=== PATIENT | female | born 1995 | race Caucasian/White ===

== ENCOUNTER 2016-11-17 10:07 | Inpatient (IN) | payer OTHER ==
[2016-11-17 11:13] VITALS: BMI 24.2
--- NOTE | 2016-11-17 12:53 | HP ---
COWS - Scale Resting Pulse: 0= [place] 80 or Below Sweatin=Flushed/Facial Moisture Restless Observation: 3= Extraneous Movement Pupil Size: 2= Moderately Dilated Bone or Joint Aches: 2= Severe Diffuse Aches Runny Nose/ Eye Tearin= Runny Nose/Eyes GI Upset > 30mins: 3= Vomiting/Diarrhea Tremor Observation: 2= Slight Tremor Visible Yawning Observation: 2= >3x During Session Anxiety or Irritability: 2=Irritable/Anxious Goose Flesh Skin: 0=Smooth Skin COWS Score: 20 CIWA Score - CIWA Score Nausea/Vomitin Muscle Tremors: 3 Anxiety: 3 Agitation: 3 Paroxysmal Sweats: 2 Orientation: 0-Oriented Tacttile Disturbances: 2-Mild Itch/Numbness/Burn Auditory Disturbances: 2-Mild Harshness/Frighten Visual Disturbances: 2-Mild Sensitivity Headache: 2-Mild CIWA-Ar Total Score: 22 Admission ROS BHS - HPI Chief Complaint: i need help to stop using heroin,xanax,cannabis dependence Allergies/Adverse Reactions: Allergies Allergy/AdvReac Type Severity Reaction Status Date / Time No Known Allergies Allergy Verified 11/17/16 12:37 History of Present Illness: this 21 years old female with heroin,xanax,marijuana dependence,withdrawal symptom,last detox 02/20/16 to 02/25/16 anxiety and depression weight loss abscess left forearm nicotine dependence longest period of sobriety 10 months Exam Limitations: No Limitations - Ebola screening Have you traveled outside of the country in the last 21 days: No Have you had contact with anyone from an Ebola affected area: No Have you been sick,other than usual withdrawal symptoms: No - Review of Systems Constitutional: Chills, Diaphoresis, Loss of Appetite, Malaise, Night Sweats, Changes in sleep, Weakness, Unexplained wgt Loss EENT: reports: Tearing, Nose Congestion Respiratory: reports: No Symptoms reported Cardiac: reports: No Symptoms Reported GI: reports: Diarrhea, Nausea, Vomiting, Abdominal cramping : reports: No Symptoms Reported Musculoskeletal: reports: Back Pain, Joint Pain, Muscle Pain, Joint Stiffness Integumentary: reports: Dryness Endocrine: reports: No Symptoms Reported Hematology: reports: No Symptoms Reported Psychiatric: reports: Anxious, Depressed Patient History - Patient Medical History Hx Anemia: Yes (no med) Hx Asthma: No Hx Chronic Obstructive Pulmonary Disease (COPD): No Hx Cancer: No Hx Cardiac Disorders: No Hx Congestive Heart Failure: No Hx Hypertension: No Hx Hypercholesterolemia: No Hx Pacemaker: No HX Cerebrovascular Accident: No Hx Seizures: No Hx Dementia: No Hx Diabetes: No Hx Gastrointestinal Disorders: No Hx Liver Disease: No Hx Genitourinary Disorders: No Hx Sexually Transmitted Disorders: No Hx Renal Disease (ESRD): No Hx Thyroid Disease: No Hx Human Immunodeficiency Virus (HIV): No (last 02/21) Hx Hepatitis C: No Hx Depression: Yes (anxiety.insomnia) Hx Suicide Attempt: No Hx Bipolar Disorder: No Hx Schizophrenia: No Other Medical History: no suicidal,no homicidal - Patient Surgical History Past Surgical History: Yes Hx Neurologic Surgery: No Hx Cataract Extraction: No Hx Cardiac Surgery: No Hx Lung Surgery: No Hx Breast Surgery: No Hx Breast Biopsy: No Hx Abdominal Surgery: No Hx Appendectomy: Yes Hx Cholecystectomy: No Hx Genitourinary Surgery: No Hx Section: No Hx Orthopedic Surgery: No Hx Hysterectomy: No Other Surgical History: TONSILECTOMY Anesthesia Reaction: No - PPD History Previous Implant?: Yes Documented Results: Negative w/proof Implanted On [facility] Admission?: Yes Date: 02/22/16 Results: 0 mm PPD to be Administered?: No - Reproductive History Patient is a Female of Child Bearing Age (11 -55 yrs old): Yes Last Menstrual Period: 09/19/16 Patient : No - Smoking Cessation Smoking history: Current every day smoker Have you smoked in the past 12 months: Yes Aproximately how many cigarettes per day: 4 Hx Chewing Tobacco Use: No Initiated information on smoking cessation: Yes 'Breaking Loose' booklet given: 11/17/16 - Substance & Tx. History Hx Alcohol Use: No Hx Substance Use: Yes Substance Use Type: Heroin, Marijuana, Tranquilizers Hx Substance Use Treatment: Yes ([facility] last 02/20/16 to 02/25/16) - Substances Abused Heroin Route: Injection Frequency: Daily Amount used: 10-20 bags Age of first use: 15 Date of Last Use: 11/16/16 Xanax Route: Oral Frequency: Daily Amount used: 12-14 mg. Age of first use: 15 Date of Last Use: 11/13/16 Marijuana Route: Smoking Frequency: Daily Amount used: $20 Age of first use: 10 Date of Last Use: 11/16/16 Family Disease History - Family Disease History Family History: Denies Admission Physical Exam [facility] - Vital Signs Vital Signs: Vital Signs - 24 hr 11/17/16 11:08 Temperature 96.8 F L Pulse Rate 53 L Respiratory 18 Rate Blood Pressure 103/72 - Physical General Appearance: Yes: Moderate Distress, Tremorous, Irritable, Sweating, Anxious HEENTM: Yes: Hearing grossly Normal, Normal ENT Inspection, Pharynx Normal, Nasal Congestion Respiratory: Yes: Lungs Clear, Normal Breath Sounds, No Respiratory Distress Neck: Yes: Within Normal Limits Breast: Yes: Breast Exam Deferred Cardiology: Yes: Within Normal Limits, Regular Rhythm, Regular Rate, S1, S2 Abdominal: Yes: Within Normal Limits, Normal Bowel Sounds, Non Tender, Flat, Soft, Surgical Scar Genitourinary: Yes: Within Normal Limits Back: Yes: Muscle Spasm Musculoskeletal: Yes: full range of Motion, Back pain, Joint Stiffness, Muscle Pain Extremities: Yes: Normal Inspection, Normal Range of Motion, Tremors Neurological: Yes: decontaminator II-XII NML intact, Fully Oriented, Alert, Motor Strength 5/5 Integumentary: Yes: Dry Lymphatic: Yes: Within Normal Limits - Diagnostic (1) Opioid dependence with withdrawal Current Visit: Yes Status: Acute (2) Uncomplicated sedative, hypnotic or anxiolytic withdrawal Current Visit: Yes Status: Acute (3) Marijuana dependence Current Visit: No Status: Chronic (4) Abscess of left forearm Current Visit: Yes Status: Acute (5) Weight loss Current Visit: Yes Status: Acute (6) Anxiety with depression Current Visit: Yes Status: Acute (7) Insomnia Current Visit: Yes Status: Acute Cleared for Admission [facility] - Detox or Rehab [facility] Level of Care: Medically Managed Detox Regimen/Protocol: Methadone [facility] Breath Alcohol Content Breath Alcohol Content: 0 Urine Pregancy Test - Result Urine Test Results: Negative- NO Line Present Urine Drug Screen - Results Drug Screen Negative: No Urine Drug Screen Results: THC-Marijuana, OPI-Opiates, TCA-Tricyclic Antidepress , OXY-Oxycodone
[2016-11-17] MEDS ORDERED: NICOTINE POLACRILEX 2 MG GUM BC PRN (13:05)
[2016-11-17] MEDS ORDERED: guaiFENesin/D-METHORPHAN HB 10 ML UNIT-DOSE CUPS PO PRN (13:05)
[2016-11-17] MEDS ORDERED: hydrOXYzine PAMOATE 50 MG CAPSULE (FP) PO PRN (13:05)
[2016-11-17] MEDS ORDERED: MAGNESIUM HYDROX 2400MG/30ML ORAL SUSPENSION 30 ML CUP PO PRN (13:05)
[2016-11-17] MEDS ORDERED: MENTHOL/PHENOL 1 EACH UD MM PRN (13:05)
[2016-11-17] MEDS ORDERED: LOPERAMIDE HCL 2 MG CAPSULE PO PRN (13:05)
[2016-11-17] MEDS ORDERED: IBUPROFEN 400 MG TABLET (FP) PO PRN (13:05)
[2016-11-17] MEDS ORDERED: MAGNESIUM CITRATE 300 ML BOTTLE PO PRN (13:05)
[2016-11-17] MEDS ORDERED: MAG HYDROX/AL HYDROX/SIMETH 30 ML UNIT-DOSE CUP PO PRN (13:05)
[2016-11-17] MEDS ORDERED: P-EPHED 60MG/TRIPROLIDI 2.5MG TABLET PO PRN (13:05)
[2016-11-17] MEDS ORDERED: ACETAMINOPHEN 325 MG TABLET (FP) PO PRN (13:05)
[2016-11-17] MEDS: SULFAMETHOXAZOLE/TRIMETHOPRIM 800MG/160MG D.S. TABLET PO SCH ×2 (13:42→22:16)
[2016-11-17] MEDS: diazePAM 5 MG TABLET PO PRN ×2 (13:42→22:16)
[2016-11-17] MEDS ORDERED: METHADONE HCL 10 MG TABLET (FOR DETOX USE ONLY) PO ONE ×2 (13:45→23:00)
[2016-11-17] MEDS: TRIMETHOBENZAMIDE HCL 200MG/2ML INJ IM PRN (14:36)
[2016-11-17 17:36] LABS: URINE APPEARANCE CLOUDY; URINE BILIRUBIN NEGATIVE (NEGATIVE); URINE COLOR YELLOW; URINE GLUCOSE (UA) NEGATIVE (NEGATIVE); URINE KETONE 2+ (NEGATIVE); URINE LEUK ESTERASE NEGATIVE (NEGATIVE); URINE NITRITE NEGATIVE (NEGATIVE); URINE UROBILINOGEN NEGATIVE E.U./dl (0.2-1.0)
[2016-11-17 17:37] LABS: URINE BLOOD 1+ (NEGATIVE); URINE PROTEIN 1+ (NEGATIVE)
[2016-11-17 17:43] LABS: URINE BACTERIA RARE /hpf (NONE SEEN); URINE MUCUS MANY; URINE RBC 51 /hpf (0-3)
[2016-11-17] MEDS: diphenhydrAMINE HCL 50 MG CAPSULE PO PRN (22:16)
[2016-11-17] MEDS: cloNIDine HCL 0.1 MG TABLET PO SCH (22:16)
[2016-11-17] MEDS: THIAMINE HCL 100 MG TABLET (FP) PO SCH (22:16)
[2016-11-17] MEDS: CYCLOBENZAPRINE HCL 10 MG TABLET (FP) PO PRN (22:16)
[2016-11-17] MEDS: BACITRACIN 0.9 GM PACKET TP SCH (22:16)
--- NOTE | 2016-11-18 08:30 | CONSULT ---
[facility] Psychiatric Consult - Data Date of interview: 11/18/16 Admission source: [facility] Identifying data: This is 21 years old female with no psychiatric hospitalization history intoxciated with: Opioids, Cocaine, Xanax and Cannabis Substance Abuse History: - Smoking Cessation. Smoking history: Current every day smoker. Have you smoked in the past 12 months: Yes. Aproximately how many cigarettes per day: 4. Hx Chewing Tobacco Use: No. Initiated information on smoking cessation: Yes. 'Breaking Loose' booklet given: 11/17/16. - Substance & Tx. History. Hx Alcohol Use: No. Hx Substance Use: Yes. Substance Use Type : Heroin, Marijuana, Tranquilizers. Hx Substance Use Treatment: Yes ([facility] last 02/20/16 to 02/25/16). - Substances Abused. Heroin. Route: Injection. Frequency: Daily. Amount used: 10-20 bags. Age of first use: 15. Date of Last Use: 11/16/16. Xanax. Route: Oral. Frequency: Daily. Amount used: 12 -14 mg. Age of first use: 15. Date of Last Use: 11/13/16. Marijuana. Route: Smoking. Frequency: Daily. Amount used: $20. Age of first use: 10. Date of Last Use: 11/16/16 Medical History: Denies significant medical issues Psychiatric History: Patient reports history of depression and anxiety, reports taking prior to admission: no medications. Denies history of [sychiatric hospitalizations as well Physical/Sexual Abuse/Trauma History: Denies Additional Comment: Observation. Detox Unit Care Protocol Mental Status Exam - Mental Status Exam Alert and Oriented to: Person Cognitive Function: Fair Patient Appearance: Unkempt Mood: Sad Affect: Flat Patient Behavior: Sedated Speech Pattern: Delayed Voice Loudness: Mildly Soft/Quiet Thought Process: Circumstantial Thought Disorder: Being Controlled Hallucinations: Denies Suicidal Ideation: Denies Homicidal Ideation: Denies Insight/Judgement: Fair Sleep: Difficulty falling asleep Appetite: Weight gain Muscle strength/Tone: Mild Hypotonicity Gait/Station: Shuffling Additional Comments: Observation. Detox Unit Care Protocol Psychiatric Findings - Problem List ([place] 1, 2,3) (1) Opioid dependence with withdrawal Current Visit: Yes Status: Acute (2) Uncomplicated sedative, hypnotic or anxiolytic withdrawal Current Visit: Yes Status: Acute (3) Heroin use disorder, severe Current Visit: No Status: Acute (4) Substance induced mood disorder Current Visit: No Status: Acute (5) Cocaine dependence Current Visit: No Status: Chronic Qualifiers: Substance use status: uncomplicated Qualified Code(s): F14.20 - Cocaine dependence, uncomplicated (6) Marijuana dependence Current Visit: No Status: Chronic (7) Opiate dependence Current Visit: No Status: Chronic Qualifiers: Substance use status: uncomplicated Qualified Code(s): F11.20 - Opioid dependence, uncomplicated (8) Substance-induced anxiety disorder Current Visit: No Status: Suspected - Initial Treatment Plan Initial Treatment Plan: Observation. Detox Unit Care Protocol
[2016-11-18] MEDS ORDERED: METHADONE HCL 10 MG TABLET (FOR DETOX USE ONLY) PO ONE (10:00)
[2016-11-18 10:03] LABS: MCH 29.1 pg (25.7-33.7); MCHC 33.1 g/dl (32.0-36.0); MEAN CELL VOLUME 87.9 fl (80-96); MEAN PLT VOLUME 9.1 fl (7.5-11.1); PLATELET COUNT 480 K/MM3 (134-434); RDW 13.5 % (11.6-15.6)
[2016-11-18 10:39] LABS: ALBUMIN 4.6 g/dl (3.4-5.0); ALK PHOS 188 U/L (45-117); ANION GAP 15 (8-16); BILIRUBIN,TOTAL 0.7 mg/dL (0.2-1.0); CALCIUM 10.1 mg/dL (8.5-10.1); CO2 21 mmol/L (21-32); CREATININE 1.1 mg/dL (0.55-1.02); GLUCOSE,RANDOM 132 mg/dL (74-106); SGOT/AST 20 U/L (15-37); SGPT/ALT 41 U/L (12-78); TOT PROT 9.2 g/dl (6.4-8.2)
[2016-11-18] MEDS: BACITRACIN 0.9 GM PACKET TP SCH ×2 (11:02→22:27)
[2016-11-18] MEDS: cloNIDine HCL 0.1 MG TABLET PO SCH ×2 (11:02→22:29)
[2016-11-18] MEDS: SULFAMETHOXAZOLE/TRIMETHOPRIM 800MG/160MG D.S. TABLET PO SCH ×2 (11:02→22:27)
[2016-11-18] MEDS: CYCLOBENZAPRINE HCL 10 MG TABLET (FP) PO PRN ×2 (11:03→22:27)
[2016-11-18] MEDS: PRENATAL VITAMINS W/ FOLIC ACID TABLET (FP) PO SCH (11:03)
[2016-11-18] MEDS: diazePAM 5 MG TABLET PO PRN (11:03)
[2016-11-18] MEDS: TRIMETHOBENZAMIDE HCL 200MG/2ML INJ IM PRN (11:06)
--- NOTE | 2016-11-18 12:35 | EKG ---
Test Reason : Blood Pressure : / mmHG Vent. Rate : 039 BPM Atrial Rate : 039 BPM P-R Int : 114 ms QRS Dur : 088 ms QT Int : 560 ms P-R-T Axes : -03 028 053 degrees QTc Int : 450 ms MARKED SINUS BRADYCARDIA ABNORMAL ECG NO PREVIOUS ECGS AVAILABLE Confirmed by ALEJANDRA BAUTISTA MD ([id number]) on 11/18/2016 12:35:38 PM Referred By: Confirmed By:ALEJANDRA BAUTISTA MD
--- NOTE | 2016-11-18 13:49 | PN ---
[facility] CIWA - CIWA Score Nausea/Vomitin-Int. Nausea w/Dry Heave Muscle Tremors: 3 Anxiety: 3 Agitation: 2 Paroxysmal Sweats: 3 Orientation: 0-Oriented Tacttile Disturbances: 2-Mild Itch/Numbness/Burn Auditory Disturbances: 0-None Visual Disturbances: 0-None Headache: 0-None Present CIWA-Ar Total Score: 17 S COWS - Scale Resting Pulse: 0= [place] 80 or Below Sweatin= Chills/Flushing Restless Observation: 3= Extraneous Movement Pupil Size: 1= Pupils >than Normal Bone or Joint Aches: 2= Severe Diffuse Aches Runny Nose/ Eye Tearin= Nasal Congestion GI Upset > 30mins: 2= Nausea/Diarrhea Tremor Observation of Outstretched Hands: 1= Tremor [place], Not Seen Yawning Observation: 0= None Anxiety or Irritability: 2=Irritable/Anxious Goose Flesh Skin: 0=Smooth Skin COWS Score: 13 [facility] Progress Note (SOAP) Subjective: interrupted sleep, sweats,restless, nausea, bodyaches Objective: 11/18/16 13:47 Vital Signs Temperature 98.1 F 11/18/16 10:56 Pulse Rate 56 L 11/18/16 10:56 Respiratory Rate 16 11/18/16 10:56 Blood Pressure 109/61 11/18/16 10:56 O2 Sat by Pulse Oximetry (%) Last Vital Signs Temp Pulse Resp BP Pulse Ox 98.1 F 56 L 16 109/61 11/18/16 10:56 11/18/16 10:56 11/18/16 10:56 11/18/16 10:56 Laboratory Tests 11/17/16 11/18/16 11/18/16 13:00 06:20 06:20 WBC 20.0 H D RBC 5.12 Hgb 14.9 D Hct 45.0 MCV 87.9 MCHC 33.1 RDW 13.5 Plt Count 480 H D MPV 9.1 Sodium 141 Potassium 4.1 Chloride 105 Carbon Dioxide 21 D Anion Gap 15 BUN 16 D Creatinine 1.1 H D Creat Clearance w eGFR > 60 Random Glucose 132 H D Calcium 10.1 Total Bilirubin 0.7 D AST 20 D ALT 41 D Alkaline Phosphatase 188 H D Total Protein 9.2 H D Albumin 4.6 D Urine Color Yellow Urine Appearance Cloudy Urine pH 5.0 Ur Specific [place] 1.030 Urine Protein 1+ H Urine Glucose (UA) Negative Urine Ketones 2+ H Urine Blood 1+ H Urine Nitrite Negative Urine Bilirubin Negative Urine Urobilinogen Negative Ur Leukocyte Esterase Negative Urine RBC 51 Urine WBC None Ur Epithelial Cells Rare Amorphous Urates Moderate Urine Bacteria Rare Urine Mucus Many pt aox3 lying in bed in nad Assessment: 11/18/16 13:48 withdrawal sx;s leucocytosis Plan: cont. detox increase fluids tigan im cbc/esr flexeril
[2016-11-18] MEDS: diphenhydrAMINE HCL 50 MG CAPSULE PO PRN (22:27)
[2016-11-18] MEDS: THIAMINE HCL 100 MG TABLET (FP) PO SCH (22:27)
[2016-11-19 09:39] LABS: MCHC 34.2 g/dl (32.0-36.0); MEAN CELL VOLUME 87.5 fl (80-96); MEAN PLT VOLUME 8.2 fl (7.5-11.1); PLATELET COUNT 317 K/MM3 (134-434); RDW 13.5 % (11.6-15.6); WHITE BLOOD COUNT 8.9 K/mm3 (4.0-10.0)
[2016-11-19] MEDS ORDERED: METHADONE HCL 5 MG TABLET (FOR DETOX USE ONLY) PO ONE (10:00)
[2016-11-19] MEDS: CYCLOBENZAPRINE HCL 10 MG TABLET (FP) PO PRN ×2 (10:52→22:25)
[2016-11-19] MEDS: PRENATAL VITAMINS W/ FOLIC ACID TABLET (FP) PO SCH (10:52)
[2016-11-19] MEDS: BACITRACIN 0.9 GM PACKET TP SCH ×2 (10:52→22:25)
[2016-11-19] MEDS: SULFAMETHOXAZOLE/TRIMETHOPRIM 800MG/160MG D.S. TABLET PO SCH ×2 (10:52→22:25)
[2016-11-19] MEDS: cloNIDine HCL 0.1 MG TABLET PO SCH ×2 (10:52→22:26)
[2016-11-19] MEDS: diazePAM 5 MG TABLET PO PRN (10:53)
--- NOTE | 2016-11-19 11:03 | PN ---
S CIWA - CIWA Score Nausea/Vomitin Muscle Tremors: 2 Anxiety: 3 Agitation: 2 Paroxysmal Sweats: 3 Orientation: 0-Oriented Tacttile Disturbances: 1-Very Mild Itch/Numbness Auditory Disturbances: 0-None Visual Disturbances: 0-None Headache: 0-None Present CIWA-Ar Total Score: 13 S Progress Note (SOAP) Subjective: interrupted sleep,sweating Objective: 11/19/16 11:00 Vital Signs Temperature 97.7 F 11/19/16 10:19 Pulse Rate 71 11/19/16 10:19 Respiratory Rate 18 11/19/16 10:19 Blood Pressure 105/59 11/19/16 10:19 O2 Sat by Pulse Oximetry (%) Vital Signs Temperature 97.7 F 11/19/16 10:19 Pulse Rate 71 11/19/16 10:19 Respiratory Rate 18 11/19/16 10:19 Blood Pressure 105/59 11/19/16 10:19 O2 Sat by Pulse Oximetry (%) Laboratory Tests 11/17/16 11/18/16 11/18/16 13:00 06:20 06:20 WBC 20.0 H D RBC 5.12 Hgb 14.9 D Hct 45.0 MCV 87.9 MCHC 33.1 RDW 13.5 Plt Count 480 H D MPV 9.1 Neutrophils % Lymphocytes % Sodium 141 Potassium 4.1 Chloride 105 Carbon Dioxide 21 D Anion Gap 15 BUN 16 D Creatinine 1.1 H D Creat Clearance w eGFR > 60 Random Glucose 132 H D Calcium 10.1 Total Bilirubin 0.7 D AST 20 D ALT 41 D Alkaline Phosphatase 188 H D Total Protein 9.2 H D Albumin 4.6 D Urine Color Yellow Urine Appearance Cloudy Urine pH 5.0 Ur Specific [place] 1.030 Urine Protein 1+ H Urine Glucose (UA) Negative Urine Ketones 2+ H Urine Blood 1+ H Urine Nitrite Negative Urine Bilirubin Negative Urine Urobilinogen Negative Ur Leukocyte Esterase Negative Urine RBC 51 Urine WBC None Ur Epithelial Cells Rare Amorphous Urates Moderate Urine Bacteria Rare Urine Mucus Many RPR Titer 11/18/16 11/19/16 06:20 06:45 WBC 8.9 D RBC 4.36 Hgb 13.1 D Hct 38.2 D MCV 87.5 MCHC 34.2 RDW 13.5 Plt Count 317 D MPV 8.2 Neutrophils % Y Lymphocytes % Y Sodium Potassium Chloride Carbon Dioxide Anion Gap BUN Creatinine Creat Clearance w eGFR Random Glucose Calcium Total Bilirubin AST ALT Alkaline Phosphatase Total Protein Albumin Urine Color Urine Appearance Urine pH Ur Specific [place] Urine Protein Urine Glucose (UA) Urine Ketones Urine Blood Urine Nitrite Urine Bilirubin Urine Urobilinogen Ur Leukocyte Esterase Urine RBC Urine WBC Ur Epithelial Cells Amorphous Urates Urine Bacteria Urine Mucus RPR Titer Nonreactive pt aox3 in nad ambulating Assessment: 11/19/16 11:01 withdrawal sx,s Plan: cont. detox increase fluids
--- NOTE | 2016-11-19 11:50 | EKG ---
Test Reason : Blood Pressure : / mmHG Vent. Rate : 047 BPM Atrial Rate : 047 BPM P-R Int : 138 ms QRS Dur : 082 ms QT Int : 558 ms P-R-T Axes : 024 025 059 degrees QTc Int : 493 ms SINUS BRADYCARDIA PROLONGED QT ABNORMAL ECG WHEN COMPARED WITH ECG OF 17-NOV-2016 12:44, NO SIGNIFICANT CHANGE WAS FOUND Confirmed by LAKISHA BAUTISTA MD ([id number]) on 11/19/2016 11:50:00 AM Referred By: Confirmed By:LAKISHA BAUTISTA MD
[2016-11-19 14:45] LABS: PLATELET ESTIMATE ADEQUATE (NORMAL)
[2016-11-19] MEDS: diphenhydrAMINE HCL 50 MG CAPSULE PO PRN (22:25)
[2016-11-19] MEDS: THIAMINE HCL 100 MG TABLET (FP) PO SCH (22:25)
[2016-11-20] MEDS ORDERED: METHADONE HCL 5 MG TABLET (FOR DETOX USE ONLY) PO ONE (10:00)
[2016-11-20] MEDS: SULFAMETHOXAZOLE/TRIMETHOPRIM 800MG/160MG D.S. TABLET PO SCH ×2 (10:44→22:40)
[2016-11-20] MEDS: cloNIDine HCL 0.1 MG TABLET PO SCH ×2 (10:45→22:40)
[2016-11-20] MEDS: BACITRACIN 0.9 GM PACKET TP SCH ×2 (10:45→22:40)
[2016-11-20] MEDS: PRENATAL VITAMINS W/ FOLIC ACID TABLET (FP) PO SCH (10:45)
[2016-11-20] MEDS: diazePAM 5 MG TABLET PO PRN (10:47)
[2016-11-20] MEDS: CYCLOBENZAPRINE HCL 10 MG TABLET (FP) PO PRN ×2 (10:48→22:40)
--- NOTE | 2016-11-20 13:30 | PN ---
S Progress Note (SOAP) Subjective: Fatigue, Sweating, Body Aches, Tremors. Objective: PT. A & O X 3, OBSERVED AMBULATING ON UNIT. PT. REPORTS HISTORY OF LOW BP. PT. DENIES DIZZINESS. 11/20/16 13:27 Vital Signs Temperature 97.5 F L 11/20/16 11:28 Pulse Rate 57 L 11/20/16 11:28 Respiratory Rate 18 11/20/16 11:28 Blood Pressure 100/59 11/20/16 11:28 O2 Sat by Pulse Oximetry (%) Laboratory Last Values WBC 8.9 K/mm3 (4.0-10.0) D 11/19/16 06:45 RBC 4.36 M/mm3 (3.60-5.2) 11/19/16 06:45 Hgb 13.1 GM/dL (10.7-15.3) D 11/19/16 06:45 Hct 38.2 % (32.4-45.2) D 11/19/16 06:45 MCV 87.5 fl (80-96) 11/19/16 06:45 MCHC 34.2 g/dl (32.0-36.0) 11/19/16 06:45 RDW 13.5 % (11.6-15.6) 11/19/16 06:45 Plt Count 317 K/MM3 (134-434) D 11/19/16 06:45 MPV 8.2 fl (7.5-11.1) 11/19/16 06:45 Neutrophils % 23.0 % (42.8-82.8) L 11/19/16 06:45 Lymphocytes % 59.0 % (8-40) H 11/19/16 06:45 Monocytes % 7.0 % (3.8-10.2) 11/19/16 06:45 Eosinophils % 1.0 % (0-4.5) 11/19/16 06:45 Differential Comment Manual diff done 11/19/16 06:45 Reactive Lymphocytes 10 % (0-80) 11/19/16 06:45 Platelet Estimate Adequate (NORMAL) 11/19/16 06:45 ESR 17 mm/hr (0-20) 11/19/16 06:45 Sodium 141 mmol/L (136-145) 11/18/16 06:20 Potassium 4.1 mmol/L (3.5-5.1) 11/18/16 06:20 Chloride 105 mmol/L (98-107) 11/18/16 06:20 Carbon Dioxide 21 mmol/L (21-32) D 11/18/16 06:20 Anion Gap 15 (8-16) 11/18/16 06:20 BUN 16 mg/dL (7-18) D 11/18/16 06:20 Creatinine 1.1 mg/dL (0.55-1.02) H D 11/18/16 06:20 Creat Clearance w eGFR > 60 (>60) 11/18/16 06:20 Random Glucose 132 mg/dL (74-106) H D 11/18/16 06:20 Calcium 10.1 mg/dL (8.5-10.1) 11/18/16 06:20 Total Bilirubin 0.7 mg/dL (0.2-1.0) D 11/18/16 06:20 AST 20 U/L (15-37) D 11/18/16 06:20 ALT 41 U/L (12-78) D 11/18/16 06:20 Alkaline Phosphatase 188 U/L (45-117) H D 11/18/16 06:20 Total Protein 9.2 g/dl (6.4-8.2) H D 11/18/16 06:20 Albumin 4.6 g/dl (3.4-5.0) D 11/18/16 06:20 Urine Color Yellow 11/17/16 13:00 Urine Appearance Cloudy 11/17/16 13:00 Urine pH 5.0 (5.0-8.0) 11/17/16 13:00 Ur Specific [place] 1.030 (1.001-1.035) 11/17/16 13:00 Urine Protein 1+ (NEGATIVE) H 11/17/16 13:00 Urine Glucose (UA) Negative (NEGATIVE) 11/17/16 13:00 Urine Ketones 2+ (NEGATIVE) H 11/17/16 13:00 Urine Blood 1+ (NEGATIVE) H 11/17/16 13:00 Urine Nitrite Negative (NEGATIVE) 11/17/16 13:00 Urine Bilirubin Negative (NEGATIVE) 11/17/16 13:00 Urine Urobilinogen Negative E.U./dl (0.2-1.0) 11/17/16 13:00 Ur Leukocyte Esterase Negative (NEGATIVE) 11/17/16 13:00 Urine RBC 51 /hpf (0-3) 11/17/16 13:00 Urine WBC None /hpf (3-5) 11/17/16 13:00 Ur Epithelial Cells Rare /hpf (FEW) 11/17/16 13:00 Amorphous Urates Moderate /hpf (NONE SEEN) 11/17/16 13:00 Urine Bacteria Rare /hpf (NONE SEEN) 11/17/16 13:00 Urine Mucus Many 11/17/16 13:00 RPR Titer Nonreactive (NONREACTIVE) 11/18/16 06:20 LABS NOTED. Assessment: 11/20/16 13:38 WITHDRAWAL SYMPTOMS. Plan: CONTINUE DETOX. ADVISED PATIENT TO FOLLOW-UP WITH PLUMBING FOREMAN / REHAB MEDICAL PROVIDER AFTER DISCHARGE FROM DETOX FOR GENERAL MEDICAL ASSESSMENT AND FOR ABNORMAL ADMISSION LAB VALUES. PATIENT REQUESTING TO BE DISCHARGED TOMORROW (PRIOR TO PROJECTED DISCHARGE DATE ) DUE TO PERSONAL SCHEDULING CONFLICT. PATIENT ADVISED TO SPEAK WITH ATTENDING MEDICAL PROVIDER ON UNIT TOMORROW AM REGARDING THIS MATTER.
[2016-11-20] MEDS: TRIMETHOBENZAMIDE HCL 200MG/2ML INJ IM PRN (14:12)
[2016-11-20] MEDS: THIAMINE HCL 100 MG TABLET (FP) PO SCH (22:40)
[2016-11-20] MEDS: diphenhydrAMINE HCL 50 MG CAPSULE PO PRN (22:40)
--- NOTE | 2016-11-21 09:18 | PN ---
S Progress Note (SOAP) Subjective: ALERT,NO COMPLAINT Objective: 11/21/16 09:13 Vital Signs Temperature 97.9 F 11/21/16 06:55 Pulse Rate 80 11/21/16 06:55 Respiratory Rate 18 11/21/16 06:55 Blood Pressure 123/80 11/21/16 06:55 O2 Sat by Pulse Oximetry (%) Assessment: 11/21/16 09:13 PATIENT IS STABLE FOR DISCHARGE 11/21/16 09:18 Plan: DISCHARGE TODAY,FOLLOW UP WITH AFTER CARE PROGRAM ARRANGEMENT
[2016-11-21] MEDS: SULFAMETHOXAZOLE/TRIMETHOPRIM 800MG/160MG D.S. TABLET PO SCH (09:19)
[2016-11-21] MEDS: PRENATAL VITAMINS W/ FOLIC ACID TABLET (FP) PO SCH (09:19)
[2016-11-21] MEDS: BACITRACIN 0.9 GM PACKET TP SCH (09:19)
[2016-11-21] MEDS: cloNIDine HCL 0.1 MG TABLET PO SCH (09:20)
--- NOTE | 2016-11-21 09:24 | DS ---
[facility] Detox Discharge Summary Admission Date: 11/17/16 Discharge Date: 11/21/16 - History Present History: Opioid Dependence, Sedative Dependence Additional Comments: PATIENT IS STABLE FOR DISCHARGE TODAY DUE TO FAMILY EMERGENCY,FOLLOW UP WITH AFTER CARE PROGRAM ARRANGEMENT AND PMD FOR MEDICAL PROBLEM Pertinent Past History: ABSCESS LEFT FOREARM - Physical Exam Results Vital Signs: Vital Signs Temperature 97.9 F 11/21/16 06:55 Pulse Rate 80 11/21/16 06:55 Respiratory Rate 18 11/21/16 06:55 Blood Pressure 123/80 11/21/16 06:55 O2 Sat by Pulse Oximetry (%) Pertinent Admission Physical Exam Findings: WITHDRAWAL SYMPTOM - Treatment Hospital Course: Detox Protocol Followed, Detoxed Safely, Responded well, Discharged Condition Good Patient has Accepted a Rehab Referral to: DECLINED - Medication Discharge Medications: Ambulatory Orders NK [No Known Home Medication] 11/17/16 - Diagnosis (1) Opioid dependence with withdrawal Current Visit: Yes Status: Acute (2) Uncomplicated sedative, hypnotic or anxiolytic withdrawal Current Visit: Yes Status: Acute (3) Marijuana dependence Current Visit: No Status: Chronic (4) Abscess of left forearm Current Visit: Yes Status: Acute (5) Weight loss Current Visit: Yes Status: Acute (6) Anxiety with depression Current Visit: Yes Status: Acute (7) Insomnia Current Visit: Yes Status: Acute - AMA Did Patient Leave Against Medical Advice: No
[2016-11-21] MEDS ORDERED: METHADONE HCL 10 MG TABLET (FOR DETOX USE ONLY) PO ONE (10:00)
[2016-11-21 10:33] VITALS: BP 103/49; PULSE 68; TEMP 97.1
[2016-11-22] MEDS ORDERED: METHADONE HCL 5 MG TABLET (FOR DETOX USE ONLY) PO ONE (06:00)
== END 2016-11-21 09:58 | disposition home or self-care (01) | DRG 773 ==
LOC: YASAS 10:07 → Y6N 13:02
PROVIDERS: ADMIT Internal Medicine Addiction Medicine; ATTEND Internal Medicine Addiction Medicine
PROC: HZ2ZZZZ Detoxification Services for Substance Abuse Treatment (ICD-10-PCS; principal; 2016-11-21)
DX: F11.23 Opioid dependence with withdrawal (principal); F13.230 Sedative, hypnotic or anxiolytic dependence with withdrawal, uncomplicated; F12.20 Cannabis dependence, uncomplicated; F19.280 Other psychoactive substance dependence with psychoactive substance-induced anxiety disorder; F19.24 Other psychoactive substance dependence with psychoactive substance-induced mood disorder; F41.8 Other specified anxiety disorders; G47.00 Insomnia, unspecified; L03.114 Cellulitis of left upper limb; R63.4 Abnormal weight loss; Z68.24 Body mass index [BMI] 24.0-24.9, adult
CPT/HCPCS: 36415; 80053; 81003; 81015; 85025; 85027; 85651; 86593; 93005; 93010